=== PATIENT | male | born 1955 | race African-American/Black ===

== ENCOUNTER 2022-10-27 20:07 | Inpatient (IN) | payer MEDICARE, MEDICAID ==
[~2022-10-27] VITALS: Ht 177.8 cm; Wt 65.0 kg
[2022-10-27] MEDS ORDERED: SODIUM CHLORIDE 0.9% 500 ML IV ONE (23:15)
[2022-10-27 23:41] LABS: BASOPHILS % (AUTO) 0.6 % (0.0-2.0); EOSINOPHILS % (AUTO) 0.5 % (1.0-6.0); HEMATOCRIT 23.2 % (41-53); HEMOGLOBIN 7.2 g/dL (13.5-17.5); LYMPHOCYTES # (AUTO) 1.3 K/uL (1.0-4.8); MEAN CORPUSCULAR HEMOGLOBIN 24.5 pg (26.0-34.0); MEAN CORPUSCULAR HGB CONC 30.9 G/dL (31.0-37.0); MEAN CORPUSCULAR VOLUME 79 fL (80-100); MONOCYTES # (AUTO) 1.3 K/uL (0.1-1.0); MONOCYTES % (AUTO) 12.9 % (2.0-9.0); NEUTROPHILS # (AUTO) 7.5 K/uL (1.8-7.7); PLATELET COUNT (AUTO) 373 K/uL (150-450); RED BLOOD CELL COUNT(AUTO) 2.93 MIL/uL (4.50-5.90); RED CELL DISTRIBUTION WIDTH 23.1 % (11.5-14.5)
[2022-10-27] MEDS ORDERED: ACETAMINOPHEN 325 MG TABLET PO PRN (23:45)
[2022-10-27] MEDS ORDERED: ONDANSETRON HCL 4 MG/2 ML VIAL IVP PRN (23:45)
[2022-10-27 23:55] LABS: ANION GAP 9 mmol/L (8-16); CALCIUM, TOTAL 9.5 mg/dL (8.8-10.5); CARBON DIOXIDE 25 mmol/L (22-29); CHLORIDE 98 mmol/L (98-107); CREATININE 0.71 mg/dL (0.60-1.30); GLOMERULAR FILTR. RATE CALC > 60 mL/min (>60); GLUCOSE,RANDOM 164 mg/dL (70-110); POTASSIUM 4.4 mmol/L (3.5-5.1); SODIUM SERUM 132 mmol/L (136-145)
[2022-10-28 00:01] LABS: ALANINE AMINOTRANSFERASE 14 U/L (12-78); ALBUMIN 2.2 g/dL (3.4-5.0); ALKALINE PHOSPHATASE 127 U/L (46-116); ASPARTATE AMINOTRANSFERASE 25 U/L (15-37); BILIRUBIN,TOTAL 0.2 mg/dL (0.1-1.0); TOTAL PROTEIN, SERUM 6.5 g/dL (6.4-8.2)
[2022-10-28] MEDS: HEPARIN SODIUM,PORCINE 5,000 UNITS/ML VIAL SQ SCH ×2 (07:03)
[2022-10-28] MEDS ORDERED: FAMOTIDINE 20 MG TABLET PO SCH (09:00)
[2022-10-28] MEDS: PANTOPRAZOLE SODIUM 80 MG in SODIUM CHLORIDE 0.9% 100 ML IV SCH ×2 (09:09→20:40)
[2022-10-28] MEDS ORDERED: SODIUM CHLORIDE 0.9% 1,000 ML ONE (10:10)
[2022-10-28] MEDS ORDERED: DiphenhydrAMINE HCL 50 MG/ML VIAL ONE (10:11)
[2022-10-28] MEDS ORDERED: NALOXONE HCL 0.4 MG/ML VIAL ONE (10:11)
[2022-10-28] MEDS ORDERED: ATROPINE SULFATE 0.1 MG/ML 10 ML SYRINGE IVP ONE (10:11)
[2022-10-28] MEDS ORDERED: SODIUM TETRADECYL SULFATE 3% 60 MG/2 ML VIAL IVP ONE (10:11)
[2022-10-28] MEDS ORDERED: FLUMAZENIL 0.1 MG/ML 5 ML VIAL IVP ONE (10:11)
[2022-10-28] MEDS ORDERED: EPINEPHrine 1:10,000 [1 MG/10 ML] SYRINGE ONE (10:11)
[2022-10-28] MEDS ORDERED: SODIUM CHLORIDE 0.9% 1,000 ML IV ONE (10:15)
[2022-10-28 11:07] LABS: BASOPHILS % (AUTO) 0.5 % (0.0-2.0); EOSINOPHILS % (AUTO) 0.5 % (1.0-6.0); HEMATOCRIT 26.3 % (41-53); HEMOGLOBIN 7.9 g/dL (13.5-17.5); LYMPHOCYTES % (AUTO) 20.4 % (22.0-44.0); MEAN CORPUSCULAR HEMOGLOBIN 24.4 pg (26.0-34.0); MEAN CORPUSCULAR HGB CONC 29.9 G/dL (31.0-37.0); MEAN CORPUSCULAR VOLUME 82 fL (80-100); MONOCYTES # (AUTO) 1.4 K/uL (0.1-1.0); MONOCYTES % (AUTO) 13.7 % (2.0-9.0); NEUTROPHILS # (AUTO) 6.5 K/uL (1.8-7.7); NEUTROPHILS % (AUTO) 64.9 % (40.0-70.0); PLATELET COUNT (AUTO) 370 K/uL (150-450); RED BLOOD CELL COUNT(AUTO) 3.22 MIL/uL (4.50-5.90); RED CELL DISTRIBUTION WIDTH 23.3 % (11.5-14.5)
[2022-10-28] MEDS ORDERED: SIMETHICONE DROPS 40 MG/0.6 ML SOLUTION 30 ML ONE (11:34)
[2022-10-28] MEDS ORDERED: LIDOCAINE/PF 2% 5 ML VIAL IM ONE (12:00)
[2022-10-28] MEDS ORDERED: PROPOFOL 1% 20 ML VIAL IVP ONE (12:00)
[2022-10-28] MEDS ORDERED: LACO100 PO (15:14)
[2022-10-28] MEDS ORDERED: FERR325T27 PO (15:14)
[2022-10-28] MEDS ORDERED: ATOR10TA PO (15:14)
[2022-10-28] MEDS ORDERED: PHENL PO (15:14)
[2022-10-28] MEDS ORDERED: POTA-92 PO (15:14)
[2022-10-28] MEDS ORDERED: MULT-660 PO (15:14)
[2022-10-28] MEDS ORDERED: FAMO20 PO (15:14)
[2022-10-28] MEDS ORDERED: LISI-893 PO (15:14)
[2022-10-28] MEDS ORDERED: FINA-27 PO (15:14)
[2022-10-28] MEDS ORDERED: METF-1211 PO (15:14)
[2022-10-28] MEDS ORDERED: CHOL25TA4 PO (15:14)
[2022-10-28] MEDS ORDERED: ASCO500 PO (15:14)
[2022-10-28] MEDS ORDERED: LEVE100S7 PO (15:16)
[2022-10-28] MEDS ORDERED: METO25 PO (15:18)
[2022-10-28] MEDS ORDERED: APIX2.5T PO (15:21)
[2022-10-28] MEDS ORDERED: GABA250S11 PO (15:30)
[2022-10-28] MEDS ORDERED: PNEUMOCOCCAL VACCINE POLYVALENT 0.5 ML VIAL [PPSV23] IM. ONE (16:15)
[2022-10-28 18:16] VITALS: BP 135/74; PULSE 72; RESP 18; TEMP 98.5
[2022-10-28] MEDS ORDERED: MORPHINE SULFATE 2 MG/ML SYRINGE IVP ONE (21:00)
[2022-10-28 21:10] VITALS: BP 133/77; PULSE 80; RESP 18; TEMP 98.3
[2022-10-29] MEDS ORDERED: SODIUM CHLORIDE 0.9% 500 ML IV ONE (01:28)
[2022-10-29 04:32] VITALS: BP 144/82; PULSE 78; RESP 18; TEMP 98
[2022-10-29] MEDS: PANTOPRAZOLE SODIUM 80 MG in SODIUM CHLORIDE 0.9% 100 ML IV SCH (06:47)
[2022-10-29 08:10] VITALS: BP 151/78; PULSE 81; RESP 20; TEMP 98.9
[2022-10-29 15:53] VITALS: BP 132/73; PULSE 108; RESP 19; TEMP 98.8
[2022-10-29 19:58] VITALS: BP 110/73; PULSE 98; RESP 20; TEMP 97.9
[2022-10-29] MEDS: PANTOPRAZOLE SODIUM 40 MG DR TABLET PO SCH (20:57)
[2022-10-29] MEDS: METOPROLOL TARTRATE 25 MG TABLET PO SCH (20:57)
[2022-10-29] MEDS: LevETIRAcetam 500 MG TABLET PO SCH (20:58)
[2022-10-30 04:56] VITALS: BP 147/85; PULSE 78; RESP 18; TEMP 98.1
[2022-10-30] MEDS: LevETIRAcetam 500 MG TABLET PO SCH ×2 (07:56→22:19)
[2022-10-30] MEDS: PANTOPRAZOLE SODIUM 40 MG DR TABLET PO SCH ×2 (07:56→22:21)
[2022-10-30] MEDS: METOPROLOL TARTRATE 25 MG TABLET PO SCH ×2 (07:56→22:19)
[2022-10-30 08:05] VITALS: BP 147/77; PULSE 89; RESP 19; TEMP 97.7
[2022-10-30] MEDS: ETHYL ALCOHOL 62% ANTISEPTIC NASAL SANITIZER 0.6 ML AMPUL NASAL SCH ×2 (10:02→21:00)
[2022-10-30 11:32] LABS: BASOPHILS % (AUTO) 0.8 % (0.0-2.0); EOSINOPHILS % (AUTO) 0.8 % (1.0-6.0); HEMATOCRIT 29.8 % (41-53); HEMOGLOBIN 9.2 g/dL (13.5-17.5); LYMPHOCYTES # (AUTO) 2.2 K/uL (1.0-4.8); LYMPHOCYTES % (AUTO) 28.8 % (22.0-44.0); MEAN CORPUSCULAR HEMOGLOBIN 24.5 pg (26.0-34.0); MEAN CORPUSCULAR HGB CONC 30.9 G/dL (31.0-37.0); MEAN CORPUSCULAR VOLUME 79 fL (80-100); MONOCYTES # (AUTO) 1.3 K/uL (0.1-1.0); MONOCYTES % (AUTO) 16.9 % (2.0-9.0); NEUTROPHILS # (AUTO) 4.1 K/uL (1.8-7.7); NEUTROPHILS % (AUTO) 52.7 % (40.0-70.0); PLATELET COUNT (AUTO) 393 K/uL (150-450); RED BLOOD CELL COUNT(AUTO) 3.76 MIL/uL (4.50-5.90); RED CELL DISTRIBUTION WIDTH 23.3 % (11.5-14.5)
[2022-10-30 15:09] VITALS: BP 132/87; PULSE 73; RESP 19; TEMP 97.8
[2022-10-30 19:16] VITALS: BP 131/83; PULSE 94; RESP 18; TEMP 98.7
[2022-10-31 05:18] VITALS: BP 143/81; PULSE 90; RESP 18; TEMP 98.7
[2022-10-31 07:14] VITALS: BP 147/86; PULSE 79; RESP 20; TEMP 97.8
[2022-10-31] MEDS: ETHYL ALCOHOL 62% ANTISEPTIC NASAL SANITIZER 0.6 ML AMPUL NASAL SCH ×2 (08:52→21:13)
[2022-10-31] MEDS: LevETIRAcetam 500 MG TABLET PO SCH ×2 (08:52→21:14)
[2022-10-31] MEDS: METOPROLOL TARTRATE 25 MG TABLET PO SCH ×2 (08:52→21:14)
[2022-10-31] MEDS: PANTOPRAZOLE SODIUM 40 MG DR TABLET PO SCH ×2 (08:53→21:14)
[2022-10-31] MEDS: ASPIRIN 81 MG CHEWABLE TABLET PO SCH (08:53)
[2022-10-31 15:20] VITALS: BP 140/78; PULSE 84; RESP 18; TEMP 97.6
[2022-10-31 19:50] VITALS: BP 136/86; PULSE 100; RESP 18; TEMP 98.5
[2022-11-01 04:10] VITALS: BP 145/78; PULSE 81; RESP 18; TEMP 98.6
[2022-11-01] MEDS: BISACODYL 10 MG RECTAL RECTAL SUPPOSITORY PR PRN ×2 (05:33→05:35)
[2022-11-01 07:41] LABS: ANION GAP 5 mmol/L (8-16); CARBON DIOXIDE 30 mmol/L (22-29); CHLORIDE 101 mmol/L (98-107); CREATININE 0.49 mg/dL (0.60-1.30); GLOMERULAR FILTR. RATE CALC > 60 mL/min (>60); GLUCOSE,RANDOM 170 mg/dL (70-110); POTASSIUM 3.8 mmol/L (3.5-5.1); SODIUM SERUM 136 mmol/L (136-145)
[2022-11-01 07:56] VITALS: BP 140/74; PULSE 84; RESP 18; TEMP 98.4
[2022-11-01] MEDS: ASPIRIN 81 MG CHEWABLE TABLET PO SCH (08:49)
[2022-11-01] MEDS: LevETIRAcetam 500 MG TABLET PO SCH ×2 (08:50→21:21)
[2022-11-01] MEDS: PANTOPRAZOLE SODIUM 40 MG DR TABLET PO SCH ×2 (08:50→21:21)
[2022-11-01] MEDS: METOPROLOL TARTRATE 25 MG TABLET PO SCH ×2 (08:50→21:21)
[2022-11-01] MEDS: ETHYL ALCOHOL 62% ANTISEPTIC NASAL SANITIZER 0.6 ML AMPUL NASAL SCH ×2 (08:50→21:00)
[2022-11-01] MEDS: HYDROCODONE/ACETAMINOPHEN 5-325 MG TABLET PO PRN ×2 (12:48→21:21)
[2022-11-01 15:44] VITALS: BP 120/74; PULSE 76; RESP 18; TEMP 97.5
[2022-11-01 20:04] VITALS: BP 122/78; PULSE 94; RESP 18; TEMP 98.5
[2022-11-01] MEDS ORDERED: LACTULOSE 20 GM/30 ML SOLUTION UDCUP PO PRN (20:15)
[2022-11-02 05:41] VITALS: BP 132/73; PULSE 70; RESP 20; TEMP 98.7
[2022-11-02 08:00] VITALS: BP 149/86; PULSE 85; RESP 20; TEMP 98.7
[2022-11-02] MEDS: PANTOPRAZOLE SODIUM 40 MG DR TABLET PO SCH (08:31)
[2022-11-02] MEDS: LevETIRAcetam 500 MG TABLET PO SCH (08:31)
[2022-11-02] MEDS: ASPIRIN 81 MG CHEWABLE TABLET PO SCH (08:31)
[2022-11-02] MEDS: METOPROLOL TARTRATE 25 MG TABLET PO SCH (08:31)
[2022-11-02] MEDS: ETHYL ALCOHOL 62% ANTISEPTIC NASAL SANITIZER 0.6 ML AMPUL NASAL SCH (08:33)
[2022-11-02] MEDS ORDERED: MULTIVITAMINS WITH MINERALS, THERAPEUTIC TABLET PO SCH (09:00)
[2022-11-02 15:22] VITALS: BP 124/65; PULSE 80; RESP 20; TEMP 97.8
[2022-11-02] MEDS ORDERED: ASPI81TA87 PO (16:41)
[2022-11-02] MEDS ORDERED: ETHY1MED2 NASAL (16:42)
[2022-11-02] MEDS ORDERED: APIX5TAB PO (16:43)
[2022-11-02] MEDS ORDERED: PANT-31 PO (16:44)
[2022-11-02] MEDS ORDERED: ACET-784 PO (16:45)
[2022-11-02] MEDS ORDERED: LACT10SO85 PO (16:46)
[2022-11-02] MEDS ORDERED: BISA10SU61 PR (16:46)
[2022-11-03] MEDS ORDERED: APIXABAN 5 MG TABLET PO SCH (09:00)
== END 2022-11-02 18:30 | DRG 377 ==
LOC: EMS 20:09 → ICUN 10-28 04:00 → 6S 10-28 17:08
PROVIDERS: ADMIT Internal Medicine; ATTEND Internal Medicine
PROC: 0DB78ZX Excision of Stomach, Pylorus, Via Natural or Artificial Opening Endoscopic, Diagnostic (ICD-10-PCS; principal; 2022-10-28 12:00)
DX: K29.01 Acute gastritis with bleeding (principal); R53.2 Functional quadriplegia; E44.0 Moderate protein-calorie malnutrition; I69.351 Hemiplegia and hemiparesis following cerebral infarction affecting right dominant side; D50.0 Iron deficiency anemia secondary to blood loss (chronic); Z66 Do not resuscitate; I95.9 Hypotension, unspecified; G40.909 Epilepsy, unspecified, not intractable, without status epilepticus; I10 Essential (primary) hypertension; I48.0 Paroxysmal atrial fibrillation; N40.0 Benign prostatic hyperplasia without lower urinary tract symptoms; I25.2 Old myocardial infarction; Z86.711 Personal history of pulmonary embolism; Z68.20 Body mass index [BMI] 20.0-20.9, adult
CPT/HCPCS: 51701; 80048; 80053; 83036; 85025; 86850; 86900; 86901; 87081; 88305; 93970; 99285; C9113; J0171; J0461; J1200; J2270; J2310; J2704; J3490; J7030; J7040; J7050; Q9967